=== PATIENT | female | born 1995 | race Two or more races ===

== ENCOUNTER 2024-05-10 19:30 | Emergency (ER) | payer SELFPAY ==
[2024-05-10 19:32] VITALS: BP 138/99; BMI 25.8
[2024-05-10 20:10] VITALS: BP 114/86
[2024-05-10 20:34] LABS: HCG, Serum Qualitative Screen Negative
[2024-05-10 20:37] LABS: ALT (SGPT) 13 U/L (0-35); AST (SGOT) 19 U/L (14-36); Albumin 4.6 g/dl (3.5-5.0); Alkaline Phosphatase 47 U/L (38-126); Blood Urea Nitrogen 13 mg/dl (7-17); Carbon Dioxide 24 mmol/L (22-30); Chloride 105 mmol/L (98-107); Estimated Creatinine Clearance 103 ml/min; Glucose 88 mg/dl (70-99); Potassium 3.8 mmol/L (3.5-5.1); Sodium 138 mmol/L (135-145); Total Bilirubin 0.6 mg/dl (0.2-1.3); Total Protein 7.1 g/dl (6.3-8.2); eGFR > 60.00
[2024-05-10 20:41] LABS: Troponin I < 0.012 ng/ml
[2024-05-10 20:53] LABS: % Basophils 0.7 % (0-2); % Eosinophils 0.7 % (0-6); % Lymphocytes 34.8 % (20.5-51.1); % Neutrophils 58.8 % (42.2-75.2); Absolute Monocytes 0.2 10^3/uL (0.1-0.6); Absolute Neutrophils 1.8 10^3/uL (1.4-6.5); Hematocrit 51.7 % (37.0-47.0); Hemoglobin 18.9 g/dL (12.0-16.0); Mean Corp Hgb Conc. 36.6 g/dL (33.0-37.0); Mean Corpuscular Hgb 33.6 pg (27.0-31.0); Mean Corpuscular Volume 91.8 fL (81.0-99.0); Nucleated Red Blood Cells % 0 %; Platelet Count 115 10^3/uL (130-400); Red Blood Cell Count 5.63 10^6/uL (4.20-5.40); Red Cell Dist. Width 12.7 % (11.5-14.5)
[2024-05-10 21:00] VITALS: BP 120/90
--- NOTE | 2024-05-10 21:06 | ED.GENMED ---
History of Present Illness
General
Chief Complaint: Chest Pain
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
Exam Limitations: none
Time Seen by Provider: 05/10/24 20:56
History of Present Illness
History of Present Illness:
28-year-old healthy female, presents with relatively sudden heart palpitation racing some shortness of breath. History of similar episode about a year ago. 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 Does not take regularly.
Denies leg pain leg swelling pleuritic pain shortness of breath currently. Feels much better at this time.
Past History
Past History
ED Past Medical History: None
ED Past Surgical History: Gynecological
Review of Systems
Review of Systems
All Other Systems: Not applicable
Constitutional: Denies fever or chills
ABD/GI: Reports no symptoms
Phy Exam
Physical Exam
Physical Exam:
GENERAL: Alert and oriented in no apparent distress
EYE: Orbits normal.
NECK: Supple, no thyroid palpable
ENT: Pharynx without erythema.
CARDIAC: Regular rate and rhythm without any obvious murmurs.
LUNGS: Clear breath sounds,normal
ABDOMEN: Soft, without focal tenderness or distention
NEUROLOGICAL: Alert and oriented , grossly non-focal
SKIN: Warm and dry, no rash or lesion, no discoloration, skin intact.
MUSCULOSKELETAL: No edema,no deformity.Good color
PSYCH: Normal and appropriate interaction.
Scores
Heart Score for Chest Pain Patients
STEMI patient?: Not applicable
Course
Orders/Labs/Results
Orders:
Orders
05/10/24 19:34
Electrocardiogram (*1) Urgent
Reason for Study: Chest Pain
EKG- Treatment ONCE
05/10/24 19:35
Test Result ONCE
05/10/24 20:12
Complete Blood Count/With Diff Urgent
Comprehensive Metabolic Panel Urgent
HCG, Serum Qualitative Screen Urgent
Comment: Notify provider if positive test present
Troponin I Urgent
05/10/24 21:06
D-Dimer Urgent
05/10/24 22:12
0.9% Sodium Chloride 1000 ml [Nss] 1,000 ml IV BOLUS
05/10/24 22:13
CT Chest Pe Study Urgent
Comment:
Reason For Exam: Short of breath/polycythemic
Abnormal Lab Results
05/10/24
20:12
WBC 3.0 L 10^3/uL
(4.8-10.8)
RBC 5.63 H 10^6/uL
(4.20-5.40)
Hgb 18.9 H g/dL
(12.0-16.0)
Hct 51.7 H %
(37.0-47.0)
MCH 33.6 H pg
(27.0-31.0)
Plt Count 115 L 10^3/uL
(130-400)
MPV 11.0 H fL
(7.4-10.4)
Absolute Lymphs (auto) 1.0 L 10^3/uL
(1.2-3.4)
05/10/24 20:12
05/10/24 20:12
Vital Signs
Initial and Last Documented VS:
Initial Vital Signs
Temp Pulse Resp BP Pulse Ox
98.4 F 91 22 138/99 100
05/10/24 19:32 05/10/24 19:32 05/10/24 19:32 05/10/24 19:32 05/10/24 19:32
Last Documented Vital Signs
Temp Pulse Resp BP Pulse Ox
98.4 F 83 26 123/70 100
05/10/24 19:32 05/10/24 22:30 05/10/24 22:30 05/10/24 22:00 07/24/24 22:30
MDM/Problems Addressed
Differential Diagnosis Includes:
Patient presents with relatively sudden heart racing palpitations some chest pain and shortness of breath that have essentially resolved. No serious etiology found clinically. However she does have some abnormal CBC findings including mild
polycythemia. Mild thrombocytopenia and mild low WBC. Will add D-dimer. These lab findings were sent to hematology who felt nothing acute to be done at this time but repeat labs in 2 weeks.
*Radiology
Radiology exam reviewed: radiology read reviewed (Negative pulmonary emboli)
*Pulse Oximetry
Patient hypoxic: no
*EKG
Interpreted by ED Provider?: Yes
Interpretation: abnormal
Comparison EKG: no comparison EKG present
Heart Rate: 103
Rate: tachycardiac
Rhythm: sinus
[place]: normal axis
Interval: normal interval
QRS Pattern: low voltage
Ischemia: no ischemia
*Manager Icu Interpretation
Rate: normal
Interpretation: normal
Heart Rate: 88
Rhythm: sinus
*Critical Care Note
Total Time (30-74mins, 75-104mins- exclusive of procedures): Not Applicable
Update Note
Update Note:
Patient looks well. Essentially asymptomatic. Negative workup except for the abnormal CBC. This will be followed up. Discharged to follow-up
ED Attending Note
-
Portions of this chart may have been created with voice recognition software.� Occasional wrong word or��sound alike� substitutions may have occurred due to the inherent limitations of voice recognition software.
Discharge Plan
Departure
Patient Disposition: Home (Routine Discharge)
Date of Disposition: 05/10/24
Time of Disposition: 23:34
Patient with high blood pressure during this ER visit?: No
Discharge Problem:
Transient palpitations/chest pain/dyspne, Polycythemia/mild thrombocytopenia
Instructions: Polycythemia Vera (DC), Shortness of Breath, Adult ED, Chest pain
Prescriptions:
No Action
ibuprofen 600 MG tablet
600 mg PO Q6HPRN PRN (Reason: moderate pain/cramps) Qty: 0 0RF
Referrals:
Christopher Rosario MD [Active] - Next open appointment
Activity Restrictions/Additional Instructions:
Stay well-hydrated
Follow-up closely with your primary physician
Get a repeat CBC done in 1 to 2 weeks
If the lab abnormalities remain, follow-up with hematology.
Interventions
Interventions:
*Risk Screen - Suicide Last Done: 05/10/24 19:32
*General Assessment Last Done: 05/10/24 20:14
*Neglect/Abuse Screening Last Done: 05/10/24 19:32
ED- Fall Risk Assessment Last Done: 05/10/24 20:15
*ED COVID-19 Vaccine History Last Done: 05/10/24 20:14
ED- Cardiac Assessment Last Done: 05/10/24 20:15
Discharge Date and Time
Print Language: HUNGARIAN
[2024-05-10 21:55] LABS: D-Dimer 0.46 ug/mlFEU (0.00-0.50)
[2024-05-10 22:00] VITALS: BP 123/70
[2024-05-10] MEDS: NSS 1000 IV (22:21)
== END 2024-05-10 23:50 | disposition home or self-care (01) ==
LOC: EMR 19:30
PROVIDERS: Student in an Organized Health Care Education/Training Program; EMERGENCY PHYSICIAN Emergency Medicine; FAMILY PHYSICIAN Family Medicine
DX: R07.89 Other chest pain (principal); R00.2 Palpitations; D69.6 Thrombocytopenia, unspecified; D75.1 Secondary polycythemia
CPT/HCPCS: 99285; 96360; 71275; 80053; 84484; 84703; 85025; 85379; 93005; Q9967

== ENCOUNTER 2024-06-20 16:24 | Emergency (ER) | payer OTHER, SELFPAY ==
[2024-06-20 16:28] VITALS: BP 129/89
[2024-06-20 16:51] LABS: % Basophils 0.6 % (0-2); % Eosinophils 0.6 % (0-6); % Immature Granulocytes 0.1 % (0-0.5); % Lymphocytes 25.8 % (20.5-51.1); % Monocytes 5.7 % (1.7-9.3); % Neutrophils 67.2 % (42.2-75.2); Absolute Lymphocytes 1.9 10^3/uL (1.2-3.4); Absolute Monocytes 0.4 10^3/uL (0.1-0.6); Absolute Neutrophils 4.9 10^3/uL (1.4-6.5); Hematocrit 35.2 % (37.0-47.0); Mean Corp Hgb Conc. 36.9 g/dL (33.0-37.0); Mean Corpuscular Hgb 33.7 pg (27.0-31.0); Mean Corpuscular Volume 91.2 fL (81.0-99.0); Mean Platelet Volume 10.6 fL (7.4-10.4); Nucleated Red Blood Cells % 0 %; Platelet Count 269 10^3/uL (130-400); Red Blood Cell Count 3.86 10^6/uL (4.20-5.40); Urine Albumin Negative (Neg - Trace); Urine Bilirubin Negative (Negative); Urine Character Slightly Cloudy (Clear); Urine Color Yellow; Urine Glucose Negative (Negative); Urine Ketone Negative (Negative); Urine Leukocyte 1+ (Negative); Urine Nitrite Negative (Negative); Urine Occult Blood 1+ (Negative); Urine Specific Gravity 1.025 (<1.030); Urine Urobilinogen Negative (Neg - 1+); White Blood Cell Count 7.2 10^3/uL (4.8-10.8)
[2024-06-20 16:57] LABS: Urine Bacteria Many (Negative); Urine Red Blood Cell 0-2 /HPF (0-2); Urine Squamous Cell 16-20 /LPF (Few); Urine White Cell 21-25 /HPF (0-5)
[2024-06-20 17:05] LABS: ALT (SGPT) 10 U/L (0-35); AST (SGOT) 18 U/L (14-36); Albumin 4.8 g/dl (3.5-5.0); Alkaline Phosphatase 43 U/L (38-126); Blood Urea Nitrogen 12 mg/dl (7-17); Calcium 9.9 mg/dl (8.4-10.2); Carbon Dioxide 26 mmol/L (22-30); Chloride 102 mmol/L (98-107); Glucose 86 mg/dl (70-99); Potassium 4.5 mmol/L (3.5-5.1); Sodium 141 mmol/L (135-145); Total Bilirubin 0.7 mg/dl (0.2-1.3); Total Protein 7.5 g/dl (6.3-8.2); eGFR > 60.00
[2024-06-20 17:16] LABS: Troponin I < 0.012 ng/ml
[2024-06-20 17:18] LABS: COVID-19 Antigen Negative (Negative)
[2024-06-20] MEDS: NSS 1000 IV (17:40)
[2024-06-20] MEDS: TORADOL 15 MG IV (17:40)
--- NOTE | 2024-06-20 17:41 | ED.GENMED ---
History of Present Illness
<Rica Webb PA-C - Last Filed: 06/22/24 06:55>
General
Chief Complaint: Headache
Source: patient
Time Seen by Provider: 06/20/24 17:01
History of Present Illness
History of Present Illness:
28yoF with no significant past medical history presenting for evaluation of back pain. Patient is Chinese speaking and history is obtained with the assistance of an fringe maker. Patient started with lower back pain 2 days ago which has been gradually
worsening. Pain is worse with movement. She denies any injuries or inciting incident. She also reports a headache, flu-like symptoms, and a 'weird' feeling with urination that began yesterday. No fevers or vomiting. Previous abdominal surgeries
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
Past History
<Rica Webb PA-C - Last Filed: 06/22/24 06:55>
Past History
ED Past Medical History: None
ED Past Surgical History: Gynecological
Phy Exam
<Rica Webb PA-C - Last Filed: 06/22/24 06:55>
General Physical Exam
General Presentation: well appearing and no apparent distress
General age: appears stated age
General Skin: warm and dry
General Habitus: normal
General Mental: alert
Cardiovascular Exam
Cardiovascular Exam: regular rate/rhythm
Pulmonary Exam
Pulmonary Exam: lungs clear, no respiratory distress, no crackles and no wheezing
Gastrointestinal Exam
Gastrointestinal Exam: soft, non distended, cva tenderness and tender (+Tenderness in suprapubic region. No rebound or guarding. +L CVA tenderness. )
Skin Exam
Skin Exam: normal color and warm/dry
Psychiatric Exam
Psychiatric Exam: normal mood/affect
Course
<Rica Webb PA-C - Last Filed: 06/22/24 06:55>
Orders/Labs/Results
Orders:
Orders
06/20/24 16:30
Electrocardiogram (*1) Urgent
Reason for Study: Palpitations
06/20/24 16:31
EKG- Treatment ONCE
06/20/24 16:44
COVID-19 Antigen Urgent
Source: Nasal Swab
Complete Blood Count/With Diff Urgent
Comprehensive Metabolic Panel Urgent
HCG, Serum Qualitative Screen Urgent
Comment: ADD ON
Troponin I Urgent
Urine Culture Reflexed from UA [Urinalysis Reflex To Culture] Urgent
Date Specimen was Collected: 06/20/24
Time Specimen was Collected: 16:32
Urine Microscopic Reflex Cult Urgent
Urine Culture Urgent
HAILE Source: U
Specimen Description:
Date Specimen was Collected: 06/20/24
Time Specimen was Collected: 16:32
06/20/24 17:30
Add On- LAB Urgent
Tests Added?: serum HCG
06/20/24 17:31
CT Abd/pelvis W Iv Cont Urgent
Comment:
Reason For Exam: L flank pain, lower abd pain
0.9% Sodium Chloride 1000 ml [Nss] 1,000 ml IV BOLUS
Ketorolac [Toradol] 15 mg IV NOW STA
Abnormal Lab Results
06/20/24
16:44
RBC 3.86 L 10^6/uL
(4.20-5.40)
Hct 35.2 L %
(37.0-47.0)
MCH 33.7 H pg
(27.0-31.0)
MPV 10.6 H fL
(7.4-10.4)
Ur Occult Blood Reflex 1+ A
(Negative)
Leukocyte Esterase Rfl 1+ A
(Negative)
Urine WBC (Reflex) 21-25 A /HPF
(0-5)
Urine Bacteria (Reflex) Many A
(Negative)
06/20/24 16:44
06/20/24 16:44
Vital Signs
Initial and Last Documented VS:
Initial Vital Signs
Temp Pulse Resp BP Pulse Ox
97.8 F 97 20 129/89 99
06/20/24 16:28 06/20/24 16:28 06/20/24 16:28 06/20/24 16:28 06/20/24 16:28
Last Documented Vital Signs
Temp Pulse Resp BP Pulse Ox
97.8 F 87 16 131/97 100
06/20/24 16:28 06/20/24 21:51 06/20/24 21:51 06/20/24 21:51 06/20/24 21:51
<Jay Bocanegra Jr., PA-C - Last Filed: 06/20/24 21:36>
Orders/Labs/Results
Orders:
Orders
06/20/24 16:30
Electrocardiogram (*1) Urgent
Reason for Study: Palpitations
06/20/24 16:31
EKG- Treatment ONCE
06/20/24 16:44
COVID-19 Antigen Urgent
Source: Nasal Swab
Complete Blood Count/With Diff Urgent
Comprehensive Metabolic Panel Urgent
HCG, Serum Qualitative Screen Urgent
Comment: ADD ON
Troponin I Urgent
Urine Culture Reflexed from UA [Urinalysis Reflex To Culture] Urgent
Date Specimen was Collected: 06/20/24
Time Specimen was Collected: 16:32
Urine Microscopic Reflex Cult Urgent
Urine Culture Urgent
HAILE Source: U
Specimen Description:
Date Specimen was Collected: 06/20/24
Time Specimen was Collected: 16:32
06/20/24 17:30
Add On- LAB Urgent
Tests Added?: serum HCG
06/20/24 17:31
CT Abd/pelvis W Iv Cont Urgent
Comment:
Reason For Exam: L flank pain, lower abd pain
0.9% Sodium Chloride 1000 ml [Nss] 1,000 ml IV BOLUS
Ketorolac [Toradol] 15 mg IV NOW STA
Abnormal Lab Results
06/20/24
16:44
RBC 3.86 L 10^6/uL
(4.20-5.40)
Hct 35.2 L %
(37.0-47.0)
MCH 33.7 H pg
(27.0-31.0)
MPV 10.6 H fL
(7.4-10.4)
Ur Occult Blood Reflex 1+ A
(Negative)
Leukocyte Esterase Rfl 1+ A
(Negative)
Urine WBC (Reflex) 21-25 A /HPF
(0-5)
Urine Bacteria (Reflex) Many A
(Negative)
06/20/24 16:44
06/20/24 16:44
Vital Signs
Initial and Last Documented VS:
Initial Vital Signs
Temp Pulse Resp BP Pulse Ox
97.8 F 97 20 129/89 99
06/20/24 16:28 06/20/24 16:28 06/20/24 16:28 06/20/24 16:28 06/20/24 16:28
Last Documented Vital Signs
Temp Pulse Resp BP Pulse Ox
97.8 F 87 16 131/97 100
06/20/24 16:28 06/20/24 21:51 06/20/24 21:51 06/20/24 21:51 06/20/24 21:51
[place];Rica Webb PA-C - Last Filed: 06/22/24 06:55>
MDM/Problems Addressed
Differential Diagnosis Includes:
28yoF here with lower back pain, 'weird' urination, and URI symptoms x 2 days. No fevers or vomiting. She is afebrile and hemodynamically stable. She is well appearing in no distress. There is L CVA tenderness present on exam. Differential diagnosis
includes but is not limited to: UTI, pyelonephritis, appendicitis, kidney stone, viral illness
Initial ED plan: Cardiac labs, EKG, COVID swab, and UA checked in triage. Labs unremarkable including normal white count and renal function. UA with 21-25 WBC and many bacteria suggesting infection. COVID negative. Will proceed with CT abdomen to
exclude stone or other pathology. IV Toradol and fluid bolus for symptoms.
<Jay Bocanegra Jr., PA-C - Last Filed: 06/20/24 21:36>
*Critical Care Note
Total Time (30-74mins, 75-104mins- exclusive of procedures): Not Applicable
<Jay Bocanegra Jr., PA-C - Last Filed: 06/20/24 21:36>
Update Note
Update Note:
Care transition to Ed DONG Bocanegra pending CT scan. The CT scan [id number]: Left adnexal mass measuring 5.7 cm x 4 cm most consistent with ovarian dermoid. Patient reassessed no significant discomfort to the area otherwise could be consistent with
urinary tract infection with started on Keflex otherwise stable for outpatient management and advised for close outpatient follow-up with gynecology.
ED Attending Note
<Rica Webb PA-C - Last Filed: 06/22/24 06:55>
-
Portions of this chart may have been created with voice recognition software.� Occasional wrong word or��sound alike� substitutions may have occurred due to the inherent limitations of voice recognition software.
Discharge Plan
Departure
Patient Disposition: Home (Routine Discharge)
Date of Disposition: 06/20/24
Time of Disposition: 21:34
Patient with high blood pressure during this ER visit?: No
Condition: Good
Covid-19: Not Applicable
Discharge Problem:
UTI (urinary tract infection), Dermoid cyst of ovary
Instructions: Urinary Tract Infection, Adult ED
Prescriptions:
New
cephalexin 500 mg capsule
500 mg PO TID 7 Days Qty: 21 0RF
No Action
ibuprofen 600 MG tablet
600 mg PO Q6HPRN PRN (Reason: moderate pain/cramps) Qty: 0 0RF
Referrals:
Felicia Hoffman, DO [Active] -
UNKNOWN - PT DOES,NOT KNOW [Family Provider] -
Activity Restrictions/Additional Instructions:
You came to the emergency department today with concerns of flank pain. Here you had a potential urinary tract infection please take Keflex 3 times daily for the next week. Also please follow closely with gynecology for your ovarian mass. Return
to the emergency department any worsening, new or concerning symptoms.
Interventions
Interventions:
*Risk Screen - Suicide Last Done: 06/20/24 16:28
*General Assessment Last Done: 06/20/24 16:28
*Neglect/Abuse Screening Last Done: 06/20/24 16:28
ED- Fall Risk Assessment Last Done: 06/20/24 21:52
*ED COVID-19 Vaccine History Last Done: 06/20/24 21:52
*Nursing Disposition Last Done: 06/20/24 21:52
ED- Neurological Assessment Last Done: 06/20/24 17:46
Discharge Date and Time
Discharge Date/Time: 06/20/24 21:53
Print Language: IRISH
[2024-06-20 18:14] LABS: HCG, Serum Qualitative Screen Negative
[2024-06-20 21:51] VITALS: BP 131/97
== END 2024-06-20 21:53 | disposition home or self-care (01) ==
LOC: EMR 16:24
PROVIDERS: Emergency Medicine; EMERGENCY PHYSICIAN Student in an Organized Health Care Education/Training Program
DX: N39.0 Urinary tract infection, site not specified (principal); D27.1 Benign neoplasm of left ovary; M54.50 Low back pain, unspecified; R00.2 Palpitations; R51.9 Headache, unspecified; Z11.52 Encounter for screening for COVID-19
CPT/HCPCS: 99285; 96361; 96374; 74177; 80053; 81003; 81015; 84484; 84703; 85025; 87086; 87088; 87186; 87811; 93005; Q9967

== ENCOUNTER → 2024-08-21 08:46 | Outpatient (REF) | payer OTHER, SELFPAY | LOC: HWRAD 08:46 | PROVIDERS: ATTENDING PHYSICIAN Nurse Practitioner Family; FAMILY PHYSICIAN Internal Medicine | DX: N83.209 Unspecified ovarian cyst, unspecified side (principal) | CPT/HCPCS: 76830; 76856 ==

== ENCOUNTER 2024-11-11 16:10 | Emergency (ER) | payer OTHER, SELFPAY ==
[2024-11-11 16:10] VITALS: BMI 20.4
[2024-11-11 16:17] VITALS: BP 139/79
[2024-11-11 16:54] LABS: % Basophils 0.4 % (0-2); % Eosinophils 0.4 % (0-6); % Immature Granulocytes 0.3 % (0-0.5); % Lymphocytes 18.1 % (20.5-51.1); % Monocytes 8.1 % (1.7-9.3); % Neutrophils 72.7 % (42.2-75.2); Absolute Lymphocytes 1.3 10^3/uL (1.2-3.4); Absolute Monocytes 0.6 10^3/uL (0.1-0.6); Absolute Neutrophils 5.2 10^3/uL (1.4-6.5); Hematocrit 38.9 % (37.0-47.0); Mean Corpuscular Hgb 33.2 pg (27.0-31.0); Mean Corpuscular Volume 92.2 fL (81.0-99.0); Mean Platelet Volume 10.5 fL (7.4-10.4); Nucleated Red Blood Cells % 0 %; Platelet Count 219 10^3/uL (130-400); Red Blood Cell Count 4.22 10^6/uL (4.20-5.40); Red Cell Dist. Width 13.1 % (11.5-14.5); White Blood Cell Count 7.2 10^3/uL (4.8-10.8)
[2024-11-11 17:07] LABS: COVID-19 Antigen Positive (Negative)
[2024-11-11 17:15] LABS: HCG, Serum Qualitative Screen Negative
[2024-11-11 17:16] LABS: ALT (SGPT) 14 U/L (0-35); AST (SGOT) 19 U/L (14-36); Albumin 4.8 g/dl (3.5-5.0); Alkaline Phosphatase 47 U/L (38-126); Blood Urea Nitrogen 15 mg/dl (7-17); Calcium 9.5 mg/dl (8.4-10.2); Carbon Dioxide 28 mmol/L (22-30); Chloride 102 mmol/L (98-107); Glucose 87 mg/dl (70-99); Sodium 140 mmol/L (135-145); Total Bilirubin 0.5 mg/dl (0.2-1.3); Total Protein 7.9 g/dl (6.3-8.2); eGFR > 60.00
[2024-11-11 17:19] VITALS: BP 125/83
[2024-11-11 18:00] VITALS: BP 113/83
[2024-11-11] MEDS: MOTRIN 600 MG PO (18:19)
--- NOTE | 2024-11-11 18:42 | ED.GENMED ---
History of Present Illness
General
Chief Complaint: Cold/Flu/URI Symptoms
Source: patient
Exam Limitations: none
Time Seen by Provider: 11/11/24 17:26
Nursing documentation reviewed up to this point in time: agreed with
History of Present Illness
History of Present Illness:
Patient to Ed with complaint of fever, bodyaches, nasal congestion. Symptoms started yesterday. Daughter had similar symptoms this past week. Brought to ED by spouse for eval.
Past History
Past History
ED Past Medical History: None
ED Past Surgical History: Gynecological
Review of Systems
Review of Systems
Allergies reviewed?: Yes
All Other Systems: ROS reviewed and negative except as documented in HPI and ROS
Constitutional: Reports fever and fatigue
EENT: Reports runny nose
Respiratory: Reports cough
Cardiac: Reports no symptoms
ABD/GI: Reports no symptoms
: Reports no symptoms
Musculoskeletal: Reports no symptoms
Skin: Reports no symptoms
Neurological: Reports no symptoms
Psychiatric: Reports no symptoms
Phy Exam
General Physical Exam
General Presentation: well appearing and no apparent distress
General age: appears stated age
General Skin: warm and dry
General Habitus: normal
General Mental: alert
General Hydration: appears well hydrated
Cardiovascular Exam
Cardiovascular Exam: regular rate/rhythm and no edema
Pulmonary Exam
Pulmonary Exam: lungs clear and no respiratory distress
Gastrointestinal Exam
Gastrointestinal Exam: non tender and soft
Neurological Exam
Neurological Exam: alert, oriented x3, CN II-XII intact, no motor deficits, no sensory deficits and speech normal
Musculoskeletal Exam
Musculoskeletal Exam: full ROM and neuro vasc intact
Skin Exam
Skin Exam: normal color, warm/dry and no rash
Psychiatric Exam
Psychiatric Exam: normal mood/affect
Course
Orders/Labs/Results
Orders:
Orders
11/11/24 16:21
Test Result ONCE
11/11/24 16:44
COVID-19 Antigen Urgent
Source: Nasal Swab
Complete Blood Count/With Diff Urgent
Comprehensive Metabolic Panel Urgent
HCG, Serum Qualitative Screen Urgent
Influenza A+B Rapid Molecular Urgent
HAILE Source: Nasal Swab
Specimen Description:
11/11/24 18:13
Ibuprofen [Motrin] 600 mg PO NOW STA
Abnormal Lab Results
11/11/24
16:44
MCH 33.2 H pg
(27.0-31.0)
MPV 10.5 H fL
(7.4-10.4)
Lymphocytes % 18.1 L %
(20.5-51.1)
SARS-CoV-2 Antigen Positive A
(Negative)
11/11/24 16:44
11/11/24 16:44
Vital Signs
Initial and Last Documented VS:
Initial Vital Signs
Temp Pulse Resp BP Pulse Ox
99.3 F 94 16 139/79 98
11/11/24 16:17 11/11/24 16:17 11/11/24 16:17 11/11/24 16:17 11/11/24 16:17
Last Documented Vital Signs
Temp Pulse Resp BP Pulse Ox
98.4 F 94 16 113/83 99
11/11/24 17:41 11/11/24 16:17 11/11/24 16:17 11/11/24 18:00 11/11/24 18:15
*Critical Care Note
Total Time (30-74mins, 75-104mins- exclusive of procedures): Not Applicable
Update Note
Update Note:
Patient to ED for eval of flu like symptoms x 2 days. Labs reviewed. COVID pos. Results discussed with margot. She will be discharged home, treat symtpoms with OTC meds, close follow up with PCP. Gven instructions on s/s to return to ED and
she is ageealble to plan.
ED Attending Note
-
Portions of this chart may have been created with voice recognition software.� Occasional wrong word or��sound alike� substitutions may have occurred due to the inherent limitations of voice recognition software.
Discharge Plan
Departure
Patient Disposition: Home (Routine Discharge)
Date of Disposition: 11/11/24
Time of Disposition: 18:13
Patient with high blood pressure during this ER visit?: No
Condition: Good
Covid-19: Not Applicable
Discharge Problem:
COVID-19
Instructions: COVID-19 in adults - Discharge instructions
Prescriptions:
No Action
ibuprofen 600 MG tablet
600 mg PO Q6HPRN PRN (Reason: moderate pain/cramps) Qty: 0 0RF
cephalexin 500 mg capsule
500 mg PO TID 7 Days Qty: 21 0RF
Referrals:
UNKNOWN - PT DOES,NOT KNOW [Family Provider] -
Stand Alone Forms: Return to Work
Interventions
Interventions:
*Risk Screen - Suicide Last Done: 11/11/24 17:20
*General Assessment Last Done: 11/11/24 17:20
*ED COVID-19 Vaccine History Last Done: 11/11/24 17:20
ED- Pulmonary Assessment Last Done: 11/11/24 17:20
Discharge Date and Time
Print Language: NEPALI
== END 2024-11-11 18:55 | disposition home or self-care (01) ==
LOC: EMR 16:10
PROVIDERS: EMERGENCY PHYSICIAN Emergency Medicine
DX: U07.1 COVID-19 (principal)
CPT/HCPCS: 99283; 80053; 84703; 85025; 87502; 87811

== ENCOUNTER 2024-12-12 06:18 | Day surgery (SDC) | payer OTHER, SELFPAY ==
[2024-11-21 08:55] LABS: % Basophils 0.7 % (0-2); % Eosinophils 0.4 % (0-6); % Immature Granulocytes 0.3 % (0-0.5); % Lymphocytes 27.2 % (20.5-51.1); % Monocytes 5.1 % (1.7-9.3); % Neutrophils 66.3 % (42.2-75.2); Absolute Basophils 0.1 10^3/uL (0-0.2); Absolute Monocytes 0.4 10^3/uL (0.1-0.6); Absolute Neutrophils 4.9 10^3/uL (1.4-6.5); Hematocrit 39.4 % (37.0-47.0); Hemoglobin 13.8 g/dL (12.0-16.0); Mean Corpuscular Hgb 32.5 pg (27.0-31.0); Mean Corpuscular Volume 92.7 fL (81.0-99.0); Mean Platelet Volume 10.8 fL (7.4-10.4); Nucleated Red Blood Cells % 0 %; Platelet Count 283 10^3/uL (130-400); Red Blood Cell Count 4.25 10^6/uL (4.20-5.40); Red Cell Dist. Width 13.1 % (11.5-14.5); White Blood Cell Count 7.3 10^3/uL (4.8-10.8)
[2024-11-21 09:37] LABS: Blood Urea Nitrogen 15 mg/dl (7-17); Calcium 9.2 mg/dl (8.4-10.2); Carbon Dioxide 24 mmol/L (22-30); Chloride 101 mmol/L (98-107); Glucose 80 mg/dl (70-99); Potassium 4.2 mmol/L (3.5-5.1); Sodium 135 mmol/L (135-145); eGFR > 60.00
[2024-11-21 09:48] LABS: Beta HCG Quantitative < 2.39 mIU/ml
[2024-11-21 10:02] LABS: TSH 4.11 uIU/ml (0.47-4.68); TSH Reflex To Free T4 4.11 uIU/ml (0.47-4.68)
[2024-11-21 12:43] VITALS: BMI 26.6
[2024-12-05 10:42] VITALS: BMI 26.6
[2024-12-12] VITALS (12 sets, daily range): BP systolic 114–129; BP diastolic 64–87; BMI 26.6
[2024-12-12] MEDS: NEURONTIN 300 MG PO (11:57)
[2024-12-12] MEDS: TYLENOL 1000 MG PO (11:57)
[2024-12-12] MEDS: DILAUDID 0.5 MG IV (17:43)
--- NOTE | 2024-12-12 19:24 | W.IMMPOSTOP ---
Surgical Immed Post Op Note
-
Primary Surgeon: Jerilyn Kennedy DO
Motor Mechanic: EVELIA Kendall
Pre-op Diagnosis: Complex left adnexal mass suspicious for dermoid cyst; dysmenorrhea
Post-op Diagnosis: same; left ovarian dermoid cyst, left ovarian simple cyst, left ovarian endometriosis , extensive pelvic adhesions
Procedure Performed: robotic assisted laparoscopic left ovarian cystectomy x2, excision of dermoid cyst, extensive lysis adhesions
Anesthesia Type: general ET Dr. Brown
Specimen / Cultures: left ovarian dermoid cyst
Estimated Blood Loss: 5ml
Urine output: 200ml clear yellow
Complications: none
Operative Findings: Omental adhesions extending from just below umbilicus in midline extending down to uterus. No bowel involved in adhesions. Many filmy see through windows here. Omental adhesions to uterus. Absent right fallopian tube and right
ovary from prior surgery. Adhesions (filmy) filling cul de sac and to sigmoid colon. left fallopian tube normal appearance. Left ovary with 2.5 cm simple cyst (superiorly) and 4cm dermoid cyst containing hair and cheesy white material located more
inferiorly inside left ovary. Filmy adhesions of left ovary to posterior uterus. Superficial endometriosis implant on surface of left ovary 5mm. no other endometriosis implants noted. Uterus globular shape. Interceed placed at completion of case
over uterus and left ovary for adhesion prevention.
Counts correct times 2.
Stable to recovery
Dictated.
== END 2024-12-12 20:11 | disposition home or self-care (01) ==
LOC: SDS 06:18
PROVIDERS: ATTENDING PHYSICIAN Obstetrics & Gynecology; FAMILY PHYSICIAN Family Medicine
DX: D27.1 Benign neoplasm of left ovary (principal); N94.6 Dysmenorrhea, unspecified; N80.102 Endometriosis of left ovary, unspecified depth; N73.6 Female pelvic peritoneal adhesions (postinfective)
CPT/HCPCS: 58662; 88307; 36415; 80048; 84443; 84702; 85025; 86850; 86900; 86901; 93005

== ENCOUNTER 2025-06-16 10:10 | Emergency (ER) | payer OTHER, SELFPAY ==
[2025-06-16 10:12] VITALS: BP 116/85
[2025-06-16 13:00] VITALS: BMI 29.5
--- NOTE | 2025-06-16 13:32 | ED.GENMED ---
History of Present Illness
<Melchor Miller MD, Resident - Last Filed: 06/16/25 15:32>
General
Chief Complaint: Skin Problem
Source: patient
Time Seen by Provider: 06/16/25 13:01
History of Present Illness
History of Present Illness:
Errol is a 29-year-old female with history of ovarian cysts s/p excision, laparoscopy, breast augmentation who presents with 2 days of left hand pain, swelling, erythema, and pruritus. She is accompanied by fianc� was at bedside. She reports that
she was at her uncle's house on (06/14) when she felt some insect bites on her left arm and hand. Yesterday, she developed pain, erythema, pruritus, and swelling on the area of bite on her left arm along with her entire left hand, with
greatest surface area over the dorsal hand. She went to urgent care where they prescribed amoxicillin and triamcinolone ointment. She has taken this without relief. She states that she feels the area of erythema on her hand has grown since
yesterday and her pain today is more severe. She has no known allergies and denies fevers, chills, N/V, recent travel, previous episodes of this, or any changes in medications/diet.
Past History
<Melchor Miller MD, Resident - Last Filed: 06/16/25 15:32>
Past History
ED Past Medical History: None
ED Past Surgical History: Gynecological
Review of Systems
<Melchor Miller MD, Resident - Last Filed: 06/16/25 15:32>
Review of Systems
Allergies reviewed?: Yes
All Other Systems: ROS reviewed and negative except as documented in HPI and ROS
Musculoskeletal: Reports joint pain, joint swelling and edema
Skin: Reports itching and rash
Phy Exam
<Melchor Miller MD, Resident - Last Filed: 06/16/25 15:32>
General Physical Exam
General Presentation: mild distress
General Skin: warm and feels hot (Area of left hand with erythema)
General Habitus: normal
General Mental: alert
ENT Exam
ENT Exam: EOMI
Cardiovascular Exam
Cardiovascular Exam: regular rate/rhythm
Pulmonary Exam
Pulmonary Exam: lungs clear and no respiratory distress
Gastrointestinal Exam
Gastrointestinal Exam: non tender, soft and non distended
Musculoskeletal Exam
Musculoskeletal Exam: full ROM (Limited range of motion in left hand unable to rotate without pain), edema (Most extensive on the dorsal surface and wrist) and joint swelling (Over the left wrist)
Skin Exam
Skin Exam: redness (Over the left wrist and areas of left arm with insect bite), tenderness (Over the left wrist and areas of left arm with insect bite) and warmth (Over the left wrist and areas of left arm with insect bite)
Course
<Melchor Miller MD, Resident - Last Filed: 06/16/25 15:32>
Orders/Labs/Results
Orders:
Orders
06/16/25 13:59
Doxycycline [Vibramycin] 100 mg PO NOW STA
Vital Signs
Initial and Last Documented VS:
Initial Vital Signs
Temp Pulse BP Pulse Ox
97.8 F 89 116/85 97
06/16/25 10:12 06/16/25 10:12 06/16/25 10:12 06/16/25 10:12
Last Documented Vital Signs
Temp Pulse Resp BP Pulse Ox
97.7 F 74 22 120/73 95
06/16/25 14:03 06/16/25 14:03 06/16/25 14:03 06/16/25 14:03 06/16/25 14:03
<Arnoldo Ball MD - Last Filed: 06/16/25 15:26>
Orders/Labs/Results
Orders:
Orders
06/16/25 13:59
Doxycycline [Vibramycin] 100 mg PO NOW STA
Vital Signs
Initial and Last Documented VS:
Initial Vital Signs
Temp Pulse BP Pulse Ox
97.8 F 89 116/85 97
06/16/25 10:12 06/16/25 10:12 06/16/25 10:12 06/16/25 10:12
Last Documented Vital Signs
Temp Pulse Resp BP Pulse Ox
97.7 F 74 22 120/73 95
06/16/25 14:03 06/16/25 14:03 06/16/25 14:03 06/16/25 14:03 06/16/25 14:03
<Melchor Miller MD, Resident - Last Filed: 06/16/25 15:32>
MDM/Problems Addressed
Differential Diagnosis Includes:
Allergic reaction secondary to insect bite
Cellulitis
Lymphangitis
Abscess
Gout/pseudogout
MDM/Problems Addressed:
Errol is a 29-year-old female with history of ovarian cysts s/p excision, laparoscopy, breast augmentation who presents with 2 days of left hand pain, swelling, erythema, and pruritus. She is accompanied by cale� was at bedside.
#Left hand pain, swelling, erythema, pruritus
She was seen in urgent care and prescribed amoxicillin and triamcinolone topical ointment without relief. Her most likely etiology in the setting of insect bite is allergic reaction although cellulitis and abscess is still possible.
- Broaden antibiotics to cover MRSA: Add doxycycline x 7 days to her regimen of amoxicillin and triamcinolone ointment
- Bedside soft tissue ultrasound: Some cobblestoning on the dorsal surface of the left hand noticed. Left upper arm ultrasound unremarkable.
<Melchor Miller MD, Resident - Last Filed: 06/16/25 15:32>
*Pulse Oximetry
SaO2: 97
Oxygen Mode of Delivery: Room air
Patient hypoxic: no
*Critical Care Note
Total Time (30-74mins, 75-104mins- exclusive of procedures): Not Applicable
ED Attending Note
<Melchor Miller MD, Resident - Last Filed: 06/16/25 15:32>
-
Portions of this chart may have been created with voice recognition software.� Occasional wrong word or��sound alike� substitutions may have occurred due to the inherent limitations of voice recognition software.
<Arnoldo Ball MD - Last Filed: 06/16/25 15:26>
ED Attending Note
Patient seen and examined by attending physician: Yes
I performed a history and physical exam of patient and discussed management with resident, I reviewed resident's note and agree with documented findings and plan of care.: Yes
ED Attending Note:
I have seen and evaluated the patient with a [id number] encounter. I have spoken to the resident and involved in the medical history, the physical exam, medical decision making.
Evaluation and management service: agree unless noted differently below.
Results interpretation: agree unless noted differently below.
Focused HPI: 29-year-old female presents to the ER for evaluation of hand pain, redness, swelling. Patient thinks that she may have been bitten by a bug on the dorsum of her left hand a few days ago. Started have some redness and swelling and
pain. Seen at urgent care yesterday and was given topical steroid and prescription for amoxicillin. She took 24 hours of amoxicillin but feels that the swelling and redness on the hand are worse which prompted ER visit. No fever chills or any
other acute complaints. She also has some bug bites on the upper arm but she says these do not bother her as much.
Physical exam: Awake and alert not in distress. Patient has significant confluent erythema on the dorsum of the left hand with some localized tenderness. No crepitus or loculation. She is able to fully extend and flex the fingers. She has no
streaking erythema up the arm. She is a strong radial pulse on the left. She has some minor areas of folliculitis on the upper arm laterally as well.
Medical Decision Makin-year-old female presents with cellulitis of the left hand. [id number] ultrasound showed no drainable abscess but cobblestoning consistent with cellulitis. She is on amoxicillin, added doxycycline for MRSA coverage.
Stable for discharge.
Discharge Plan
Departure
Patient Disposition: Home (Routine Discharge)
Date of Disposition: 06/16/25
Time of Disposition: 15:16
Patient with high blood pressure during this ER visit?: No
Discharge Problem:
Cellulitis of hand
Instructions: Cellulitis (Skin Infection), Adult (DC)
Prescriptions:
New
doxycycline hyclate 100 mg tablet
100 mg PO BID 10 Days Qty: 20 0RF
No Action
multivitamin Tablet
1 tab PO DAILY
oxycodone 5 mg tablet
5 mg PO Q6H PRN (Reason: pain) Qty: 10 0RF
Referrals:
UNKNOWN - PT DOES,NOT KNOW [Family Provider]
Activity Restrictions/Additional Instructions:
Thank you for visiting the Emergency Department at [facility].
1. Please schedule a follow up appointment as directed. Call first thing tomorrow morning to make an appointment.
2. If indicated, please take your medications as instructed and indicated on discharge paperwork.
3. If any of your symptoms do not improve, or persist, or become more severe within 6-12 hours, please return to the emergency department for further care.
4. Please return to the emergency department if you develop a headache, neck pain/stiffness, fever greater than 100.4F, chest pain, shortness of breath, persistent nausea, vomiting, slurred speech, difficulty walking, numbness/tingling, weakness,
signs of infection or any other symptoms that are worrisome to you.
Please call [phone] if you have any questions.
Interventions
Interventions:
*Risk Screen - Suicide Last Done: 06/16/25 10:12
*General Assessment Last Done: 06/16/25 10:12
*Neglect/Abuse Screening Last Done: 06/16/25 10:12
*ED- Fall Risk Assessment Last Done: 06/16/25 10:12
*ED COVID-19 Vaccine History Last Done: 06/16/25 10:12
ED-Skin Assessment Last Done: 06/16/25 13:01
Discharge Date and Time
Print Language: GREEK
[2025-06-16 14:03] VITALS: BP 120/73
[2025-06-16] MEDS: VIBRAMYCIN 100 MG PO (14:22)
== END 2025-06-16 15:39 | disposition home or self-care (01) ==
LOC: EMR 10:10
PROVIDERS: EMERGENCY PHYSICIAN Emergency Medicine
DX: L03.114 Cellulitis of left upper limb (principal)
CPT/HCPCS: 99283

== ENCOUNTER 2025-09-12 17:11 | Emergency (ER) | payer OTHER, SELFPAY ==
[2025-09-12 17:23] VITALS: BP 115/82
[2025-09-12] MEDS: TORADOL 15 MG IV (18:44)
[2025-09-12 18:53] LABS: Hematocrit 36.8 % (37.0-47.0); Hemoglobin 13.2 g/dL (12.0-16.0); Mean Corp Hgb Conc. 35.9 g/dL (33.0-37.0); Mean Corpuscular Volume 91.8 fL (81.0-99.0); Nucleated Red Blood Cells % 0 %; Platelet Count 244 10^3/uL (130-400); Red Cell Dist. Width 12.4 % (11.5-14.5)
[2025-09-12 18:58] VITALS: BP 115/76
[2025-09-12 19:00] VITALS: BP 104/72
--- NOTE | 2025-09-12 19:00 | ED.GENMED ---
History of Present Illness
General
Chief Complaint: Back Pain
Source: patient
Exam Limitations: none
Time Seen by Provider: 09/12/25 17:53
History of Present Illness
History of Present Illness:
Patient complaining of 3 days of low back pain. Positional in nature. Decreased flexion at the hip. Difficulty putting her shoes on. No distal numbness tingling or weakness. No bowel or bladder issues. No fever or chills. No urinary symptoms.
She also notes some stiffness to both her hands and the wrist over the last month.
Past History
Past History
ED Past Medical History: None
ED Past Surgical History: Gynecological
Review of Systems
Review of Systems
All Other Systems: Not applicable
Constitutional: Denies fever
ABD/GI: Reports no symptoms
: Reports no symptoms
Phy Exam
Physical Exam
Physical Exam:
GENERAL: Alert and oriented in no apparent distress. Initially standing while in the room.
EYE: Orbits normal.
NECK: Supple, no thyroid palpable
ENT: Pharynx without erythema
CARDIAC: Regular rate and rhythm without any obvious murmurs.
LUNGS: Clear breath sounds,normal
ABDOMEN: Soft, without focal tenderness or distention
NEUROLOGICAL: Alert and oriented , grossly non-focal. Good lower extremity strength.
SKIN: Warm and dry, no rash or lesion, no discoloration, skin intact.
MUSCULOSKELETAL: No edema,no deformity.Good color. Able to ambulate without difficulty. Decreased flexion at the hip with discomfort. Negative straight leg raising. No other obvious joint abnormalities. Risks appear normal. No warmth or
erythema.
PSYCH: Normal and appropriate interaction.
Course
Orders/Labs/Results
Orders:
Orders
09/12/25 18:20
IV Insert/Care/Rem.- Treatment PRN
Ketorolac [Toradol] 15 mg IV NOW STA
Test Result ONCE
Lumbar Spine, 2 or 3 View [CR Lumbar Spine 2 Or 3 Views] Urgent
Comment:
Reason For Exam: Nontraumatic low back pain
09/12/25 18:41
CRP [C-Reactive Protein] Urgent
Complete Blood Count/With Diff Urgent
Comprehensive Metabolic Panel Urgent
ESR [Erythrocyte Sed Rate] Urgent
HCG, Serum Qualitative Screen Urgent
09/12/25 19:01
Urinalysis Reflex To Culture Urgent
Date Specimen was Collected: 09/12/25
Time Specimen was Collected: 18:59
Urine Microscopic Reflex Cult Urgent
Abnormal Lab Results
09/12/25 09/12/25
18:41 19:01
RBC 4.01 L 10^6/uL
(4.20-5.40)
Hct 36.8 L %
(37.0-47.0)
MCH 32.9 H pg
(27.0-31.0)
MPV 10.7 H fL
(7.4-10.4)
Urine Bacteria (Reflex) Few A
(Negative)
Urine Albumin (Reflex) 1+ A
(Neg - Trace)
09/12/25 18:41
09/12/25 18:41
Vital Signs
Initial and Last Documented VS:
Initial Vital Signs
Temp Pulse Resp BP Pulse Ox
98.8 F 99 16 115/82 98
09/12/25 17:23 09/12/25 17:23 09/12/25 17:23 09/12/25 17:23 09/12/25 17:23
Last Documented Vital Signs
Temp Pulse Resp BP Pulse Ox
98.8 F 82 18 99/75 97
09/12/25 17:23 09/12/25 21:10 09/12/25 21:10 09/12/25 21:11 09/12/25 21:10
MDM/Problems Addressed
Differential Diagnosis Includes:
Patient's symptoms in many ways appear to be muscular low back pain. She is neurologically stable. Nothing infectious clinically. However she also notes some wrist and hand pain and feels like they have been swollen for months. Raises the
possibility of a rheumatologic issue. Cannot make any definitive diagnosis in the ED but will check electrolytes ESR CRP.
*Radiology
Radiology exam reviewed: radiology read reviewed (Negative)
*Pulse Oximetry
SaO2: 98
Oxygen Mode of Delivery: Room air
Patient hypoxic: no
*Critical Care Note
Total Time (30-74mins, 75-104mins- exclusive of procedures): Not Applicable
Data Reviewed
Review of Other/Old Records Reveals: Labs, Records and Testing
Update Note
Update Note:
All testing stable. Nothing to indicate an infectious issue. Inflammatory markers all within normal limits. Anti-inflammatories muscle relaxers and follow-up.
ED Attending Note
-
Portions of this chart may have been created with voice recognition software.� Occasional wrong word or��sound alike� substitutions may have occurred due to the inherent limitations of voice recognition software.
Discharge Plan
Departure
Patient Disposition: Home (Routine Discharge)
Date of Disposition: 09/12/25
Time of Disposition: 21:02
Patient with high blood pressure during this ER visit?: No
Discharge Problem:
Low back pain, Bilateral wrist arthralgias
Instructions: Low Back Pain (DC)
Prescriptions:
New
cyclobenzaprine 10 mg tablet
10 mg PO TID PRN (Reason: muscle spasm) Qty: 14 0RF
No Action
multivitamin Tablet
1 tab PO DAILY
oxycodone 5 mg tablet
5 mg PO Q6H PRN (Reason: pain) Qty: 10 0RF
doxycycline hyclate 100 mg tablet
100 mg PO BID 10 Days Qty: 20 0RF
Referrals:
[facility]OPE[facility] [Other]
[facility] [Provider Group] - Next open appointment
Activity Restrictions/Additional Instructions:
Advil or Motrin for pain. You can also take Tylenol
Flexeril is a muscle relaxant. This prescription was called to your pharmacy
You need to follow-up with her regular physician. Our family practice residency program is excepting patients and a good resource
Interventions
Interventions:
*Risk Screen - Suicide Last Done: 09/12/25 17:24
*General Assessment Last Done: 09/12/25 18:56
*Neglect/Abuse Screening Last Done: 09/12/25 17:24
*ED- Fall Risk Assessment Last Done: 09/12/25 18:56
*ED COVID-19 Vaccine History Last Done: 09/12/25 18:49
*ED Influenza Vaccine History Last Done: 09/12/25 18:49
*Nursing Disposition Last Done: 09/12/25 21:11
ED-Musculoskeletal Assessment Last Done: 09/12/25 18:50
Discharge Date and Time
Discharge Date/Time: 09/12/25 21:11
Print Language: MAORI
[2025-09-12 19:05] LABS: HCG, Serum Qualitative Screen Negative
[2025-09-12 19:08] LABS: Urine Character Clear (Clear)
[2025-09-12 19:10] LABS: C-Reactive Protein 7.60 mg/L (0.0-10.00)
[2025-09-12 19:12] LABS: ALT (SGPT) 17 U/L (0-35); AST (SGOT) 20 U/L (14-36); Albumin 4.6 g/dl (3.5-5.0); Alkaline Phosphatase 42 U/L (38-126); Blood Urea Nitrogen 15 mg/dl (7-17); Carbon Dioxide 29 mmol/L (22-30); Chloride 100 mmol/L (98-107); Glucose 80 mg/dl (70-99); Sodium 135 mmol/L (135-145); Total Protein 7.7 g/dl (6.3-8.2); eGFR > 60.00
[2025-09-12 19:20] LABS: Calcium 9.7 mg/dl (8.4-10.2); Potassium 4.1 mmol/L (3.5-5.1)
[2025-09-12 19:24] LABS: Urine Red Blood Cell 0-2 /HPF (0-2); Urine White Cell 0-2 /HPF (0-5)
[2025-09-12 21:11] VITALS: BP 99/75
== END 2025-09-12 21:11 | disposition home or self-care (01) ==
LOC: EMR 17:11
PROVIDERS: EMERGENCY PHYSICIAN Emergency Medicine
DX: M54.50 Low back pain, unspecified (principal); M25.531 Pain in right wrist; M25.532 Pain in left wrist
CPT/HCPCS: 99284; 96374; 72100; 80053; 81003; 81015; 84703; 85025; 85652; 86140